=== PATIENT | female | born 1935 | race Caucasian/White ===

== ENCOUNTER 2016-06-13 04:45 | Inpatient (IN) | payer MEDICARE, OTHER, BC ==
[2016-05-31 14:34] LABS: BASOPHILS 0.5 %; BASOPHILS ABSOLUTE 0.03 10/3/uL (0.0-0.16); EOSINOPHILS ABSOLUTE 0.34 10/3/uL (0.0-0.53); HEMATOCRIT 37.1 % (36.0-48.0); HEMOGLOBIN 12.6 g/dL (12.0-16.0); IMMATURE GRANULOCYTES 0.5 %; IMMATURE GRANULOCYTES ABSOLUTE 0.03 10/3/uL (0.0-0.11); LYMPHOCYTES 29.4 %; LYMPHOCYTES ABSOLUTE 1.66 10/3/uL (0.67-4.30); MEAN CORPUSCULAR HEMOGLOB 31.7 pg (26.0-34.0); MEAN CORPUSCULAR VOLUME 93.2 fL (80-100); MONOCYTES 13.1 %; MONOCYTES ABSOLUTE 0.74 10/3/uL (0.21-1.20); NEUTROPHILS 50.5 %; NEUTROPHILS ABSOLUTE 2.84 10/3/uL (2.02-8.40); PLATELET COUNT 194 10/3/uL (150-400); RED CELL COUNT 3.98 10/6/uL (4.0-5.6); WHITE BLOOD CELLS 5.6 10/3/uL (4.5-10.5)
[2016-05-31 14:35] LABS: MANUAL DIFF NO %
[2016-05-31 14:38] LABS: ASCORBIC ACID (UR NOT ORDER) NEG (NEG); BILIRUBIN, URINE NEGATIVE (NEG); KETONE, URINE NEGATIVE (NEG); LEUKOCYTE ESTERASE(NOT OR NEG (NEG); WBC (NOT ORDERED) (RFLEX) 1 (0-5)
[2016-05-31 14:41] LABS: PROTIME (NOT ORD) 13.3 SEC (12.0-14.5)
[2016-05-31 14:50] LABS: ALBUMIN 3.3 G/DL (3.5-5.0); ALKALINE PHOSPHATASE 90 U/L (45-117); BUN (BLOOD UREA NITROGEN) 19 MG/DL (6-23); CALCIUM, SERUM 8.2 MG/DL (8.5-10.4); CHLORIDE, SERUM 108 MMOL/L (96-112); CO2 (CARBON DIOXIDE) 30 MMOL/L (24-34); CREATININE 0.66 MG/DL (0.55-1.02); GFR AFRICAN AMERICAN 97 ML/MIN (>=60); GFR NON AFRICAN AMERICAN 83 ML/MIN (>=60); GLOBULIN 3.4 G/DL (2.5-4.1); GLUCOSE, SERUM 94 MG/DL (60-99); SGOT(AST) 13 U/L (5-40); SGPT(ALT) 22 U/L (5-65); SODIUM, SERUM 145 MMOL/L (135-148); TOTAL BILIRUBIN 0.4 MG/DL (0-1.2); TOTAL PROTEIN 6.7 G/DL (6.0-8.5)
--- NOTE | ~2016-06-13 | DS ---
Discharge Summary [facility] [address] [place]. [address] NAME: DARIN HONG : 37 STATUS : DIS IN PAT#: [id number] AGE: 81 ADM/REG DATE : 06/13/16 MR#: [id number] REPORT SERV DATE: 07/05/16 DICTATED BY: ROGERIO TABARES DATE: 07/03/16 REPORT STATUS : Draft TRANSCRIBED BY: JULIANO DATE: 07/03/16 Data Collection from hospitalization DISCHARGE DIAGNOSES: 1. Severe left knee degenerative joint disease. 2. Hypertension. 3. Hypercholesterolemia. 4. Coronary artery disease. 5. Obstructive sleep apnea. 6. Gastroesophageal reflux. 7. Hypothyroidism. CONSULTATIONS: None. PROCEDURES PERFORMED: Left posterior stabilized total knee replacement, cemented, 06/13/2016. PATHOLOGY: Bone and soft tissue, left knee arthroplasty - degenerative changes, fatty bone marrow, papillary synovial hyperplasia. MEDICATIONS: Aspirin 81 mg every day at bedtime, Plavix 75 mg every morning, Pepcid 40 mg at bedtime, ferrous sulfate 325 mg twice a day, Flonase nasal spray two sprays nasally every morning, Advair two puffs via inhaler twice a day, [place] 7.5/325 one tablet every six hours as needed, Levsin 0.25 mg every four hours as needed, levothyroxine 50 mcg every morning, Prinivil 5 mg at bedtime, melatonin 5 mg at bedtime, Lopressor 25 mg twice a day, Singulair 10 mg at bedtime, multivitamins one every morning as instructed, Zofran 4 mg every 8 hours as needed, Percocet 5/325 one to two tablets every four hours as needed, Protonix 40 mg every morning, Paxil 10 mg every morning, Pravachol 40 mg at bedtime, MetroGel one application topically twice a day, and Coumadin one tablet daily as instructed. CONDITION AT DISCHARGE: Stable. DISPOSITION: The patient was discharged home to be followed by home health care on a regular diet with activities as instructed. She would follow up with me in two weeks following discharge. HOSPITAL COURSE: This is an 81-year-old female, who had left knee pain. She said she has had pain in the left knee for three years, it was gradually getting worse. The patient has severe left knee degenerative joint disease. Treatment options were discussed and it was elected to proceed with surgical intervention. She was admitted to the hospital at this time for further evaluation and treatment. Upon admission, she was taken to the operating room, where she underwent the above-mentioned procedure. She tolerated this well. There were no complications. On postop day #1, she was evaluated by Occupational and Physical Therapy. She was doing well. BARRY hose were in place. Lisinopril was held. Synthroid, aspirin, Plavix, and Coumadin were continued, as well as pravastatin, Singulair, mometasone, and famotidine. On 06/15/2016, she was up sitting in a bedside chair. She continued to do well. She did complain that her acid Discharge Summary [address] [place]. [address] NAME: DARIN HONG : 37 STATUS : DIS IN PAT#: [id number] AGE: 81 ADM/REG DATE : 06/13/16 MR#: [id number] REPORT SERV DATE: 07/05/16 DICTATED BY: ROGERIO TABARES DATE: 07/03/16 REPORT STATUS : Draft TRANSCRIBED BY: JULIANO DATE: 07/03/16 reflux with acting up. Discharge planning was performed. Hypotension had improved. Lisinopril was continued. On 06/16/2016, she continued to progress. She was alert and cooperative. Lisinopril was on hold. Toprol will being given for systolic blood pressure less than 130. We encouraged her to mobilize with Physical Therapy. Discharge instructions were given. Due to her improved and stable condition, she was discharged home to be followed by home health care with the above-stated instructions. Information collected by: Arabella Pereira I submit the above information as my discharge summary. JOCELYN/JULIANO Misty Tabares M.D. / [id number] CC: Ellen Zepeda MD
--- NOTE | ~2016-06-13 | OP ---
Record Of Operation [facility] [address] [place]. [address] NAME: DARIN HONG : 37 STATUS : ADM IN PAT#: [id number] AGE: 81 ADM/REG DATE : 06/13/16 MR#: [id number] REPORT SERV DATE: 06/13/16 DICTATED BY: ROGERIO TABARES DATE: 06/13/16 REPORT STATUS : Draft TRANSCRIBED BY: MODRaquel DATE: 06/13/16 DATE OF PROCEDURE: 06/13/2016 PREOPERATIVE DIAGNOSIS: Severe left knee degenerative joint disease. POSTOPERATIVE DIAGNOSIS: Severe left knee degenerative joint disease. OPERATION: Left posterior stabilized total knee replacement, cemented. SIDE: Left. SIZE: See chart. ANESTHESIA: See chart. ESTIMATED BLOOD LOSS: About 10 mL. TOURNIQUET TIME: Approximately 1 hour and 10 minutes. COMPLICATIONS: None. SPECIMENS: Articular surfaces. PROCEDURE: The patient was appropriately identified and marked. The operative side agreed with the consent form and it was checked by all members of the surgical team. The patient was taken to the operating room and anesthesia was induced per the anesthesiologist. The patient was carefully transferred to the operating table without incident. The patient received appropriate prophylactic antibiotics and a Fernando catheter was placed in the standard sterile technique. The patient was then carefully positioned, padded, prepped and draped in the normal sterile fashion. The operative leg had been appropriately identified and checked by all members of the operating team against the consent form and found to be the correct limb. The patient's lower extremity was then exsanguinated with an Juan wrap and a tourniquet was inflated to 350 mmHg. Sharp dissection was carried out through a straight midline longitudinal incision and electrocautery through the fat. Sharp quad splitting approach was carried out between about the medial 10 percent of the tendon and the lateral 90 percent of the tendon and down around the medial aspect of the patella and then 1 cm medial to the tibial tubercle. The patella was carefully everted and the posterior fat pad was excised and gentle MCL elevation was carried out off the proximal medial tibia subperiosteally. IM guide was placed in the distal femur after using the appropriate drill. The distal femoral cutting guide was held with 2 pins and the distal cut made. Meniscal fragments and the ACL and the PCL were excised with electrocautery, carefully staying anterior to the posterior fat pad. The proximal tibial alignment guide was set appropriately and the proximal tibial cut made. Spacer block verified full extension with excellent mediolateral balance. Sizing guide was used to place 2 drill holes in the distal femur and the four-in-one cutting block was then placed, impacted and checked Record Of Operation [facility] [address] [place]. [address] NAME: DARIN HONG : 37 STATUS : ADM IN PAT#: [id number] AGE: 81 ADM/REG DATE : 06/13/16 MR#: [id number] REPORT SERV DATE: 06/13/16 DICTATED BY: ROGERIO TABARES DATE: 06/13/16 REPORT STATUS : Draft TRANSCRIBED BY: JULIANO DATE: 06/13/16 to be sure it would not notch with an daksha wing and it was held with 2 pins. The anterior cut, posterior cut, anterior chamfer and posterior chamfer cuts were made. The pins were removed and the block was removed. A posterior release was carried out with a curved 3/4 inch osteotome staying right on the bone posteriorly. The box-cut guide was then placed, impacted and held with 2 pins and a reciprocating saw was used to cut out the box. With the trial components in place, there was excellent medial/lateral balance. The patella was then measured with a caliper, cut first with an oscillating saw and then reamed with a patella reamer. With the trial patella in place, there was excellent patellar tracking. Rotation was marked on the tibia and the tibia prepared with a drill and stamp chisel. All surfaces were then copiously irrigated with pulsatile lavage, carefully dried and then vacuum-mixed cement was pressurized with a cement gun in a doughy phase. The tibial component was placed, impacted and excess cement was removed. The cement was then pressurized in the femur and placed on the posterior runners of the femoral component, which was placed, impacted and excess cement removed and the knee was brought out into extension on a trial spacer. The cement was then pressurized in the patella. Patellar component was then placed, clamped and excess cement was removed. Once all cement was hardened, the knee was taken through range of motion. Further extruded cement was removed with a small osteotome. Then based on the trial inserts, we decided on the actual insert, which was placed in the standard fashion and held with a locking mechanism. The knee was then copiously irrigated and then closed in a layered fashion over a medium Hemovac drain superolaterally with interrupted #1 in the deep fascia, 2-0 subcutaneous and con in the skin. The wounds were dressed sterilely and the tourniquet was deflated. After completion of the first knee and discussion with the anesthesiologist, all parameters were acceptable and we decided to proceed with the second knee. Same procedure as that dictated above was carried out on the contralateral knee. The contralateral leg was again appropriately identified and checked by all members of the operating team against the consent form and found to be the correct limb. The patient's lower extremity was then exsanguinated with an Juan wrap and a tourniquet was inflated to 350 mmHg. Sharp dissection was carried out through a straight midline longitudinal incision and electrocautery through the fat. Sharp quad splitting approach was carried out between about the medial 10 percent of the tendon and the lateral 90 percent of the tendon and down around the medial aspect of the patella and then 1 cm medial to the tibial tubercle. The patella was carefully everted and the posterior fat pad was excised and gentle MCL elevation was carried out off the proximal medial tibia subperiosteally. IM guide was placed in the distal femur after using the appropriate drill. The distal femoral cutting guide was held with 2 pins and the distal cut made. Meniscal fragments and the ACL and the PCL were excised with electrocautery, carefully staying anterior to the posterior fat pad. The proximal tibial alignment guide was set appropriately and the proximal tibial cut made. Spacer block verified full extension with excellent mediolateral balance. Sizing guide was used to place 2 drill holes in the distal femur and the four-in-one cutting block was then placed, impacted and checked to be sure it would not notch with an daksha wing and it was held with 2 pins. The anterior cut, posterior cut, anterior chamfer and posterior chamfer cuts were made. The pins were removed and the block was removed. A posterior release was carried out with a curved 3/4 inch osteotome staying right on the bone posteriorly. The box cut guide was then placed, impacted and held with 2 pins and a reciprocating saw was used to Record Of Operation [address] [place]. [address] NAME: DARIN HONG : 37 STATUS : ADM IN PAT#: [id number] AGE: 81 ADM/REG DATE : 06/13/16 MR#: [id number] REPORT SERV DATE: 06/13/16 DICTATED BY: ROGERIO TABARES DATE: 06/13/16 REPORT STATUS : Draft TRANSCRIBED BY: MODRaquel DATE: 06/13/16 cut out the box. With the trial components in place, there was excellent medial/lateral balance. The patella was then measured with a caliper, cut first with an oscillating saw and then reamed with a patella reamer. With the trial patella in place, there was excellent patellar tracking. Rotation was marked on the tibia and the tibia prepared with a drill and stamp chisel. All surfaces were then copiously irrigated with pulsatile lavage, carefully dried and then vacuum-mixed cement was pressurized with a cement gun in a doughy phase. The tibial component was placed, impacted and excess cement was removed. The cement was then pressurized in the femur and placed on the posterior runners of the femoral component, which was placed, impacted and excess cement removed and the knee was brought out into extension on a trial spacer. The cement was then pressurized in the patella. Patellar component was then placed, clamped and excess cement was removed. Once all cement was hardened, the knee was taken through range of motion. Further extruded cement was removed with a small osteotome. Then based on the trial inserts, we decided on the actual insert, which was placed in the standard fashion and held with a locking mechanism. The knee was then copiously irrigated and then closed in a layered fashion over a medium Hemovac drain superolaterally with interrupted #1 in the deep fascia, 2-0 subcutaneous and con in the skin. The wounds were dressed sterilely and the tourniquet was deflated. The patient was then awakened and taken to the postanesthesia care unit without incident. All counts were correct at the end of the case. WTB/ABIL Misty Tabares M.D. / [id number]
[~2016-06-13 04:45] MED LIST: ADVAIR230P INH; ASAB PO; C25 PO; DSS PO; FERROUS SULF325 M1 PO; FLONASE NAS; KAPIDEX60 MG PO; LEVOTHYROXIN50 MCG PO; LEVSINTAB PO; LOP25 PO; MELATONIN5 M1 PO; METROGEL 0.75% T; METROGEL TOP; MULTI-VIT HP PO; NITROSTAT0.4 MG SL; NORCO1 TA1 PO; NORCO1 TA2 PO; PAX10 PO; PEPCID40 MG PO; PLAVIX PO; PRAVAC PO; PRAVACHOL40 MG PO; PRIN5 PO; PROTONIX PO; SINGULAIR1 PO
[2016-06-14 04:34] LABS: INTERNATIONAL NORMAL RATI 1.2 UNITS (-)
[2016-06-14 04:35] LABS: PROTIME (NOT ORD) 15.5 SEC (12.0-14.5)
[2016-06-14 04:50] LABS: BUN (BLOOD UREA NITROGEN) 17 MG/DL (6-23); CALCIUM, SERUM 7.9 MG/DL (8.5-10.4); CHLORIDE, SERUM 104 MMOL/L (96-112); CO2 (CARBON DIOXIDE) 30 MMOL/L (24-34); CREATININE 0.73 MG/DL (0.55-1.02); GFR AFRICAN AMERICAN 90 ML/MIN (>=60); GFR NON AFRICAN AMERICAN 78 ML/MIN (>=60); POTASSIUM, SERUM 4.6 MMOL/L (3.5-5.3); SODIUM, SERUM 140 MMOL/L (135-148)
[2016-06-14 04:52] LABS: GLUCOSE, SERUM 124 MG/DL (60-99)
[2016-06-14 05:04] LABS: HEMOGLOBIN 8.9 g/dL (12.0-16.0)
[2016-06-15 04:36] LABS: HEMOGLOBIN 10.1 g/dL (12.0-16.0)
[2016-06-15 04:37] LABS: HEMATOCRIT 30.2 % (36.0-48.0)
[2016-06-15 04:40] LABS: INTERNATIONAL NORMAL RATI 1.3 UNITS (-); PROTIME (NOT ORD) 16.4 SEC (12.0-14.5)
[2016-06-16 04:53] LABS: HEMATOCRIT 30.7 % (36.0-48.0); HEMOGLOBIN 10.1 g/dL (12.0-16.0)
[2016-06-16 04:57] LABS: INTERNATIONAL NORMAL RATI 1.4 UNITS (-); PROTIME (NOT ORD) 17.2 SEC (12.0-14.5)
[2016-06-16] MEDS ORDERED: PCET PO (11:19)
[2016-06-16] MEDS ORDERED: C25 PO (11:19)
[2016-06-16] MEDS ORDERED: ZOFRAN4 PO (11:20)
== END 2016-06-16 14:33 | disposition home health service (06) | DRG 470 ==
LOC: SDC/OF 04:45 → PACU 08:22 → 3SO 09:22
PROVIDERS: Specialist
PROC: 0SRD0J9 Replacement of Left Knee Joint with Synthetic Substitute, Cemented, Open Approach (ICD-10-PCS; principal; 2016-06-13 05:30)
DX: M17.12 Unilateral primary osteoarthritis, left knee (principal); D62 Acute posthemorrhagic anemia; I10 Essential (primary) hypertension; Z95.5 Presence of coronary angioplasty implant and graft; K21.9 Gastro-esophageal reflux disease without esophagitis; E03.9 Hypothyroidism, unspecified; I25.10 Atherosclerotic heart disease of native coronary artery without angina pectoris; J45.909 Unspecified asthma, uncomplicated; E78.5 Hyperlipidemia, unspecified
CPT/HCPCS: 71020; 80048; 80053; 81001; 85014; 85018; 85025; 85610; 87641; 88305; 88311; 93005; 94640; 97110-GP; 97116-GP; 97161-GP; 97165-GO; A9270-GY; C1776; G8978-CK-GP; G8979-CJ-GP; G8987-CJ-GO; G8988-CI-GO; J0690; J1885; J2250; J2274; J2370; J2405; J2710; J2795; J3010